=== PATIENT | male | born 1955 | race Caucasian/White ===

== ENCOUNTER 2018-03-05 16:05 | Emergency (ER) | payer OTHER ==
--- OUTSIDE RECORDS SUMMARY | 2018-03-05 16:26 | XMS REPORT | Continuity of Care Document ---
:1955 External Reference #:[id number] Author Name Rocael Linares MD Address [address], [address] [place] [address] Care Team Providers Name Role Phone Rocael Linares M.D. Primary Care Physician Unavailable Payers Type Date Identification Numbers Payment Provider Subscriber Effective: Policy Number: [employer] Alden Dockery 2013 [id number] [facility] PayID: [id number] [facility] [id number] [place] [id number] Advance Directives Description No Information Available Problems Date Description Provider Status Onset: 02/05/2012 Gastro-esophageal reflux disease with Active esophagitis Onset: 02/05/2012 Benign prostatic hyperplasia Active Onset: 02/05/2012 Hypercholesterolemia Active Onset: 02/05/2012 Hypothyroidism Active Onset: 11/10/2015 Shoulder joint pain Rocael Linares MD Active Onset: 02/11/2018 Adult health examination Rocael Linares MD Active Family History Description No Information Available Social History Type Date Description Comments Sex Unknown ETOH Use Rarely consumes alcohol Tobacco Use Reviewed: Patient has never smoked 11/10/15 Recreational Drug Use Denies Drug Use Smoking Status Reviewed: Patient has never smoked 11/10/15 Exercise Type/Frequency Exercises rarely walking 2-3 times a week Allergies, Adverse Reactions, Alerts Description No Known Drug Allergies Medications Medication Date Status Form Strength Qnty SIG Indications Ordering Provider Shingrix 02/11/ Active Suspension 50mcg/0.5 1unit 0.5 Rocael 2018 Rec ML s milliliters Teresa intramuscular MD jose AT month 0, repeat in 2-6 months Synthroid 10/05/ Active Tablets 25mcg 90tab Take One Rocael 2014 s Tablet By Teresa Mouth Every MD jose Day Immunizations CPT Code Status Date Vaccine Lot # [id number] Given 09/04/2012 Tdap Vital Signs Date Vital Result Comment 02/11/2018 11:03am Height 69 inches 5'9" Weight 222.00 lb BMI (Body Mass Index) 32.8 kg/m2 BP Systolic 140 mmHg BP Diastolic 90 mmHg Heart Rate 79 /min Body Temperature 97.0 F Body Temperature 36.1 C O2 % BldC Oximetry 97 % BP Systolic Recheck 112 mmHg BP Diastolic Recheck 80 mmHg 02/02/2017 10:26am Height 69 inches 5'9" Weight 224.38 lb BMI (Body Mass Index) 33.1 kg/m2 BP Systolic 145 mmHg BP Diastolic 88 mmHg Heart Rate 80 /min Body Temperature 98.2 F Body Temperature 36.8 C 11/10/2015 11:11am Height 69.5 inches 5'9.50" Weight 225.12 lb BMI (Body Mass Index) 32.8 kg/m2 BP Systolic 113 mmHg BP Diastolic 63 mmHg Heart Rate 66 /min Body Temperature 98.4 F Body Temperature 36.9 C 02/22/2015 11:48am Height 68.50 inches Weight 232.00 lb BMI (Body Mass Index) 34.76 kg/m2 BP Systolic 125 mmHg BP Diastolic 78 mmHg Heart Rate 86 /min Body Temperature 98.3 F Body Temperature 36.8 C O2 % BldC Oximetry 97 % 10/05/2014 11:16am Height 68.50 inches Weight 229.00 lb BMI (Body Mass Index) 34.31 kg/m2 BP Systolic 118 mmHg BP Diastolic 70 mmHg Heart Rate 76 /min 09/23/2013 11:14am Height 68.50 inches Weight 231.00 lb BMI (Body Mass Index) 34.61 kg/m2 BP Systolic 112 mmHg BP Diastolic 77 mmHg Heart Rate 73 /min Body Temperature 98.0 F Body Temperature 36.7 C 04/09/2013 1:51pm BMI (Body Mass Index) 34.46 kg/m2 Heart Rate 96 /min 04/09/2013 1:51pm Height 68.50 inches Weight 230.00 lb BMI (Body Mass Index) 34.46 kg/m2 BP Systolic 155 mmHg BP Diastolic 86 mmHg Heart Rate 96 /min 09/04/2012 1:04pm BMI (Body Mass Index) 32.64 kg/m2 09/04/2012 1:04pm Height 69.00 inches Weight 221.00 lb BMI (Body Mass Index) 32.64 kg/m2 BP Systolic 118 mmHg BP Diastolic 70 mmHg 08/04/2011 1:05pm BMI (Body Mass Index) 32.00 kg/m2 Heart Rate 79 /min 08/04/2011 1:05pm Height 69.25 inches Weight 220.00 lb BMI (Body Mass Index) 32.00 kg/m2 BP Systolic 109 mmHg BP Diastolic 70 mmHg Heart Rate 79 /min Body Temperature 97.8 F Body Temperature 36.6 C 07/13/2011 11:49am Weight 222.00 lb BP Systolic 125 mmHg BP Diastolic 71 mmHg Heart Rate 71 /min Body Temperature 97.5 F Body Temperature 36.4 C O2 % BldC Oximetry 97 % 08/02/2010 2:10pm Height 69.00 inches Weight 217.00 lb BMI (Body Mass Index) 32.00 kg/m2 BP Systolic 116 mmHg BP Diastolic 70 mmHg Heart Rate 69 /min 03/08/2010 11:10am Weight 224.00 lb BP Systolic 124 mmHg BP Diastolic 75 mmHg Heart Rate 73 /min Body Temperature 97.0 F Body Temperature 36.1 C 06/17/2009 8:29am Height 69.50 inches Weight 220.00 lb BMI (Body Mass Index) 32.00 kg/m2 BP Systolic 118 mmHg BP Diastolic 73 mmHg Heart Rate 80 /min 04/20/2009 11:32am Weight 220.00 lb BP Systolic 121 mmHg BP Diastolic 69 mmHg Heart Rate 80 /min Body Temperature 97.9 F Body Temperature 36.6 C 06/15/2008 8:31am Weight 217.00 lb BP Systolic 111 mmHg BP Diastolic 67 mmHg Heart Rate 67 /min 11/27/2006 9:50am Weight 219.00 lb BP Systolic 132 mmHg BP Diastolic 76 mmHg Heart Rate 73 /min Results Test Date Facility Test Result H/L Range Note CMP-Male 02/02/2017 [facility] Glucose 96 mg/dL 74-106 1 [address] [place], [place] [id number] [phone] BUN 15 mg/dL 6-20 Creatinine 0.8 mg/dL 0.5-1.3 Sodium 140 mmol/L 136-145 Potassium 4.2 mmol/L 3.5-5.3 Chloride 102 mmol/L 98-107 Co2 29 mEq/L 20-31 Anion Gap 9 mmol/L 7-16 eGFR-male 99 mL/m/1.73m - eGFR-Aa male 120 mL/m/1.73m - 2 Alk. Phos. 72 U/L 46-116 Alt 29 U/L 4-36 3 Ast 24 U/L 8-33 Total Bilirubin 0.8 mg/dL 0.3-1.2 Total Protein 7.1 g/dL 6.4-8.3 4 Albumin 4.6 g/dL 3.4-4.8 A/G Ratio 1.8 Ratio 1.0-2.0 Globulin 2.5 g/dL 2.4-3.7 Calcium 9.6 mg/dL 8.9-10.5 Cbcadp 02/02/2017 [facility] WBC 5.2 x10E3/uL 4.2-12.0 [address] [place] [address] [phone] RBC 5.36 x10E6/uL 4.4-6.0 HGB 15.3 g/dL 13.8-18.0 HCT 45.4 % 39-52 MCV 84.7 fL 80-98 MCH 28.5 pg 27-33 MCHC 33.7 g/dL 32-36 RDW 12.9 % 11.2-15.2 PLT 271 x10E3/uL 135-420 MPV 7.5 fL 7.0-12.3 % Piero 64.5 % 41.0-80.0 %Lym 26.6 % 10.0-45.2 %Summit 5.9 % 2.0-13.0 %Eos 2.0 % 0.0-8.0 %Baso 1.0 % 0.0-3.0 Neut 3.3 x10E3/uL 2.0-8.1 Lymp 1.4 x10E3/uL 0.6-3.1 Summit 0.3 x10E3/uL 0.0-1.0 Eos 0.1 x10E3/uL 0.0-0.6 Baso 0.1 x10E3/uL 0.0-0.2 LPP 02/02/2017 [facility] Cholesterol 248 mg/dL High 0-200 [address] [place] [address] [phone] Triglycerides 268 mg/dL High 0-249 5 HDL 45 mg/dL 40-60 LDL-Calculated 149 mg/dL High 0-130 VLDL 54 mg/dL High 0-28 Cardiac Risk 5.51 Ratio High 3.7-5.3 Laboratory test finding 02/02/2017 [facility] PSA 1.9 ng/ml 0-4.0 6 [address] [place] [address] [phone] TSH3 2.695 mIU/ml 0.350-5.500 7 Free T4 0.94 ng/dL 0.89-1.80 8 Venipuncture DONE - 9 Cbcadp 11/10/2015 [facility] WBC 6.7 x10E3/uL 4.2-12.0 [address] [place] [address] [phone] RBC 5.24 x10E6/uL 4.4-6.0 HGB 14.8 g/dL 13.8-18.0 HCT 44.3 % 39-52 MCV 84.6 fL 80-98 MCH 28.2 pg 27-33 MCHC 33.3 g/dL 32-36 RDW 12.9 % 11.2-15.2 PLT 254 x10E3/uL 135-420 MPV 7.2 fL 7.0-12.3 % Piero 67.7 % 41.0-80.0 %Lym 25.8 % 10.0-45.2 %Summit 4.6 % 2.0-13.0 %Eos 1.0 % 0.0-8.0 %Baso 0.9 % 0.0-3.0 Neut 4.5 x10E3/uL 2.0-8.1 Lymp 1.7 x10E3/uL 0.6-3.1 Summit 0.3 x10E3/uL 0.0-1.0 Eos 0.1 x10E3/uL 0.0-0.6 Baso 0.1 x10E3/uL 0.0-0.2 CMP-Male 11/10/2015 [facility] Glucose 94 mg/dL 74-106 10 [address] [place] [address] [phone] BUN 15 mg/dL 6-20 Creatinine 0.8 mg/dL 0.5-1.3 Sodium 141 mmol/L 136-145 Potassium 4.0 mmol/L 3.5-5.3 Chloride 101 mmol/L 98-107 Co2 32 mEq/L High 20-31 Anion Gap 8 mmol/L 7-16 eGFR-male 99 mL/m/1.73m - eGFR-Aa male 120 mL/m/1.73m - 11 Alk. Phos. 65 U/L 46-116 Alt 31 U/L 4-36 Ast 26 U/L 8-33 Total Bilirubin 0.9 mg/dL 0.3-1.2 Total Protein 7.2 g/dL 6.4-8.3 12 Albumin 4.5 g/dL 3.4-4.8 A/G Ratio 1.7 Ratio 1.0-2.0 Globulin 2.7 g/dL 2.4-3.7 Calcium 9.3 mg/dL 8.9-10.5 LPPM 11/10/2015 [facility] Cholesterol 232 mg/ dL High 0-200 [address] [place], [place] [address] [phone] Triglycerides 201 mg/dL 0-249 13 HDL 42 mg/dL 40-60 LDL-Calculated 150 mg/dL High 0-130 VLDL 40 mg/dL High 0-28 Cardiac Risk 5.52 Ratio High 3.7-5.3 Laboratory test finding 11/10/2015 [facility] PSA 1.9 ng/ml 0-4.0 14 [address] [place], [place] [address] [phone] Free T4 0.95 ng/dL 0.89-1.80 15 TSH3 3.356 mIU/ml 0.350-5.500 16 Venipuncture DONE - 17 Babesia Microti 02/24/2015 [facility] Babesia Microti (Igm) <1:20 18 (Igm) [address], [place] [address] [phone] Babesia Microti AB 02/24/2015 [facility] Babesia microti <1:64 Igg, Igm [address] [facility]odies (IgG, [place] [address] IgM), Ifa [phone] Ehrlichiosis Panel 02/24/2015 [facility] A. Phagocytophilum <1:[address] (Igg) [place] [address] [phone] A. Phagocytophilum (Igm) <1:20 19 E. Chaffeensis AB (Igg) <1:64 20 E. Chaffeensis AB (Igm) <1:20 21 Interpretation see note 22 Interpretation see note 23 Interpretation 02/24/2015 [facility] Interpretation see note [address] [place] [address] [phone] Lyme Disease Screen 02/24/2015 [facility] Lyme Disease <0.[address] Screen [place], [place] [address] [phone] Lacny Flu A/B 02/22/2015 [facility] Lacny Flu A /B sent [id number] By PCR [address] [id number] [place] [address] [phone] Babesia Microti AB 02/22/2015 [facility] Babesia Microti AB see below Igg, Igm [address] Igg, [place] [address] [phone] Culture, Throat 02/22/2015 [facility] Culture, Throat See Comment 26 [address] [place] [place] [address] [phone] Influenza A Antigen 02/22/2015 [facility] Influenza A Negative [address] [place] [address] [phone] Influenza A Antigen Negative 28 Influenza B 02/22/2015 [facility] Influenza B Negative [address] [place] [address] [phone] Influenza B Antigen Negative 30 Rapid Strep 02/22/2015 [facility] Rapid Strep Negative 31 [address] [place] [address] [phone] Rapid Strep Negative 32 Venipuncture 02/22/2015 [facility] Venipuncture Done [address] [place] [address] [phone] Cbcadp 10/05/2014 [facility] % Piero 71.1 % [address] [place] [address] [phone] %Baso 1.0 % %Eos 1.1 % %Lym 23.2 % %Summit 3.6 % Baso 0.1 x10E3/uL Eos 0.1 x10E3/uL HCT 42.3 % HGB 14.1 g/dL Lymp 1.3 x10E3/uL MCH 27.7 pg MCHC 33.4 g/dL MCV 82.8 fL MPV 7.8 fL Summit 0.2 x10E3/uL Neut 4.0 x10E3/uL PLT 238 x10E3/uL RBC 5.11 x10E6/uL RDW 13.8 % WBC 5.7 x10E3/uL CMP-Male 10/05/2014 [facility] Anion Gap 8 mmol/ L [address] [place] [address] [phone] BUN 15 mg/dL Calcium 9.5 mg/dL Chloride 104 mmol/L Co2 29 mEq/L Creatinine 0.8 mg/dL Glucose 96 mg/dL 33 Potassium 4.2 mmol/L Sodium 141 mmol/L eGFR-Aa male 121 mL/m/1.73m 34 eGFR-male 100 mL/m/1.73m Free T4 10/05/2014 [facility] Free T4 0.94 ng/ dL [address] [place] [address] [phone] LDH 10/05/2014 [facility] LDH 152 U/L 35 [address] [place] [address] [phone] Venipuncture 10/05/2014 [facility] Venipuncture Done [address] [place] [address] [phone] Uric Acid 10/05/2014 [facility] Uric Acid 6.7 mg /dL [address] [place] [address] [phone] LDL-Direct 10/05/2014 [facility] LDL-Direct 152 mg/dL [address] [place] [address] [phone] RY 10/05/2014 [facility] A/G Ratio 1.6 Ratio [address] [place] [address] [phone] Albumin 4.4 g/dL Alk. Phos. 66 U/L Alt 33 U/L Ast 23 U/L Direct Bilirubin 0.2 mg/dL Globulin 2.7 g/dL Total Bilirubin 0.7 mg/dL Total Protein 7.1 g/dL 36 LPP 10/05/2014 [facility] Cardiac Risk 5.70 Ratio [address] [place] [address] [phone] Cholesterol 211 mg/dL HDL 37 mg/dL Triglycerides 318 mg/dL 37 VLDL 64 mg/dL PSA 10/05/2014 [facility] PSA 1.8 ng/ml 38 [address] [place] [address] [phone] Phosphorus 10/05/2014 [facility] Phosphorus 3.2 mg/dL [address] [place] [address] [phone] Testosterone 10/05/2014 [facility] Testosterone 282.39 ng/dL [address] [place] [address] [phone] TSH3 10/05/2014 [facility] TSH3 3.792 mIU/ml [address] [place] [address] [phone] Cbcadp 09/23/2013 [facility] % Piero 68.5 % [address] [place] [address] [phone] %Baso 0.8 % %Eos 2.1 % %Lym 23.5 % %Summit 5.0 % Baso 0.1 x10E3/uL Eos 0.1 x10E3/uL HCT 43.8 % HGB 15.0 g/dL Lymp 1.6 x10E3/uL MCH 28.8 pg MCHC 34.3 g/dL MCV 83.8 fL MPV 8.3 fL Summit 0.3 x10E3/uL Neut 4.6 x10E3/uL PLT 238 x10E3/uL RBC 5.23 x10E6/uL RDW 13.3 % WBC 6.7 x10E3/uL CMP-Male 09/23/2013 [facility] A/G Ratio 1.8 Ratio [address] [place] [address] [phone] Albumin 4.4 g/dL Alk. Phos. 61 U/L Alt 36 U/L Anion Gap 9 mmol/L Ast 27 U/L BUN 23 mg/dL Calcium 9.1 mg/dL Chloride 101 mmol/L Co2 32 mEq/L Creatinine 0.8 mg/dL Globulin 2.5 g/dL Glucose 92 mg/dL 39 Potassium 4.3 mmol/L Sodium 142 mmol/L Total Bilirubin 0.8 mg/dL Total Protein 6.9 g/dL 40 eGFR-Aa male 121 mL/m/1.73m 41 eGFR-male 100 mL/m/1.73m Free T4 09/23/2013 [facility] Free T4 0.94 ng/ dL [address] [place] [address] [phone] Venipuncture 09/23/2013 [facility] Venipuncture Done [address] [place] [address] [phone] Uric Acid 09/23/2013 [facility] Uric Acid 6.6 mg /dL [address] [place] [address] [phone] HCV Ab 09/23/2013 [facility] HCV Ab Nonreactive [address] [place] [address] [phone] LDH 09/23/2013 [facility] LDH 157 U/L [address] [place] [address] [phone] LDL-Direct 09/23/2013 [facility] LDL-Direct 144 mg/dL [address] [place] [address] [phone] LPP 09/23/2013 [facility] Cardiac Risk 6.17 Ratio [address] [place] [address] [phone] Cholesterol 222 mg/dL HDL 36 mg/dL Triglycerides 216 mg/dL 42 VLDL 43 mg/dL PSA 09/23/2013 [facility] PSA 1.7 ng/ml 43 [address] [place] [address] [phone] TSH3 09/23/2013 [facility] TSH3 6.455 miu/[place] [address] [phone] Phosphorus 09/23/2013 [facility] Phosphorus 3.2 mg/[place] [address] [phone] UA 04/09/2013 [facility] [place] [address] [phone] Clarity. Clear Color. Yellow 44 Glucose, Urine Negative Ketone. Negative Leukocytes. Negative Nitrite. Negative Protein. Negative Specific Lewellen. 1.006 45 bilirubin. Negative PH. 6.0 Cbcadp 09/04/2012 [facility] % Piero 71.8 % [place] [address] [phone] %Baso 0.7 % %Eos 1.8 % %Lym 20.7 % %Summit 3.6 % Baso 0.1 x10E3/uL Eos 0.1 x10E3/uL HCT 43.8 % HGB 15.3 g/dL Lymp 1.6 x10E3/uL MCH 29.2 pg MCHC 34.8 g/dL MCV 83.7 fL MPV 7.0 fL Summit 0.3 x10E3/uL Neut 5.4 x10E3/uL PLT 248 x10E3/uL RBC 5.23 x10E6/uL RDW 12.4 % WBC 7.5 x10E3/uL CMP-Male 09/04/2012 [facility] A/G Ratio 1.8 [place] [address] [phone] Albumin 4.6 g/dL Alk. Phos. 61 U/L Alt 33 U/L Anion Gap 7 mmol/L Ast 27 U/L BUN 18 mg/dL Calcium 9.7 mg/dL Chloride 103 mmol/L Co2 30 mEq/L Creatinine 0.8 mg/dL Globulin 2.6 g/dL Glucose 93 mg/dL 46 Potassium 4.2 mmol/L Sodium 140 mmol/L Total Bilirubin 0.9 mg/dL Total Protein 7.2 g/dL 47 eGFR-Aa male 121 mL/m/1.73m 48 eGFR-male 100 mL/m/1.73m Venipuncture 09/04/2012 [facility] Venipuncture Done [address] [address] [phone] Free T4 09/04/2012 [facility] Free T4 0.84 ng/ dL [address] [place] [address] [phone] LDH 09/04/2012 [facility] LDH 152 U/L [address] [place] [address] [phone] LDL-Direct 09/04/2012 [facility] LDL-Direct 164 mg/dL [address] [place] [address] [phone] LPP 09/04/2012 [facility] Cardiac Risk 5.59 Ratio [address] [place] [address] [phone] Cholesterol 246 mg/dL HDL 44 mg/dL Triglycerides 236 mg/dL 49 VLDL 47 mg/dL PSA 09/04/2012 [facility] PSA 1.7 ng/ml 50 [address] [place] [address] [phone] TSH3 09/04/2012 [facility] TSH3 3.978 miu/ml [address] [place], [place] [address] [phone] Advia Cbcadp 08/04/2011 [facility] % Piero 67.4 % [address] [place] [address] [phone] %Baso 0.9 % %Eos 1.7 % %Lym 24.7 % %Summit 3.4 % Baso 0.1 x10E3/uL Eos 0.1 x10E3/uL HCT 44.0 % HGB 15.1 g/dL Lymp 1.7 x10E3/uL MCH 28.4 pg MCHC 34.2 g/dL MCV 83.1 fL MPV 7.0 fL Summit 0.2 x10E3/uL Neut 4.6 x10E3/uL PLT 255 x10E3/uL RBC 5.30 x10E6/uL RDW 12.6 % WBC 6.9 x10E3/uL CMP-Male 08/04/2011 [facility] A/G Ratio 1.6 Ratio [address] [address] [phone] Albumin 4.5 g/dL Alk. Phos. 67 U/L Alt 26 U/L Anion Gap 10 mmol/L Ast 21 U/L BUN 21 mg/dL Calcium 9.6 mg/dL Chloride 104 mmol/L Co2 28 mEq/L Creatinine 1.0 mg/dL Globulin 2.9 g/dL Glucose 91 mg/dL 51 Potassium 4.3 mmol/L Sodium 142 mmol/L Total Bilirubin 0.9 mg/dL Total Protein 7.4 g/dL 52 eGFR-Aa male 94 mL/m/1.73m 53 eGFR-male 78 mL/m/1.73m Free T4 08/04/2011 [facility] Free T4 1.09 ng/ dL [address] [place] [address] [phone] LDH 08/04/2011 [facility] LDH 146 U/L [address] [address] [phone] Venipuncture 08/04/2011 [facility] Venipuncture Done [address] [address] [phone] LDL-Direct 08/04/2011 [facility] LDL-Direct 155 mg/dL [address] [place] [address] [phone] LPP 08/04/2011 [facility] Cardiac Risk 5.78 Ratio [address] [address] [phone] Cholesterol 237 mg/dL HDL 41 mg/dL Triglycerides 203 mg/dL 54 VLDL 41 mg/dL PSA 08/04/2011 [facility] PSA 2.1 ng/ml 55 [address] [place] [address] [phone] Phosphorus 08/04/2011 [facility] Phosphorus 3.6 mg/dL [address] [place] [address] [phone] TSH3 08/04/2011 [facility] TSH3 3.458 miu/ml [address] [place] [address] [phone] Uric Acid 08/04/2011 [facility] Uric Acid 5.9 mg /dL [address] [place], [place] [address] [phone] Advia Cbcadp 08/02/2010 [facility] % Piero 74.7 % [address] [place] [address] [phone] %Baso 0.6 % %Eos 1.5 % %Lym 19.5 % %Summit 2.7 % Baso 0.0 x10E3/uL Eos 0.1 x10E3/uL HCT 42.9 % HGB 15.0 g/dL Lymp 1.5 x10E3/uL MCH 29.0 pg MCHC 34.9 g/dL MCV 83.2 fL MPV 7.2 fL Summit 0.2 x10E3/uL Neut 5.6 x10E3/uL PLT 267 x10E3/uL RBC 5.16 x10E6/uL RDW 12.4 % WBC 7.5 x10E3/uL CMP-Male 08/02/2010 [facility] A/G Ratio 1.6 Ratio [address] [place] [address] [phone] Albumin 4.5 g/dL Alk. Phos. 68 U/L Alt 25 U/L Anion Gap 9 mmol/L Ast 24 U/L BUN 17 mg/dL Calcium 9.6 mg/dL Chloride 102 mmol/L Co2 31 mEq/L Creatinine 0.9 mg/dL Globulin 2.9 g/dL Glucose 91 mg/dL 56 Potassium 4.1 mmol/L Sodium 142 mmol/L Total Bilirubin 1.0 mg/dL Total Protein 7.4 g/dL 57 eGFR-male 88 mL/m/1.73m eGRF-Aa male 107 mL/m/1.73m 58 Free T4 08/02/2010 [facility] Free T4 1.02 ng/ dL [address] [place] [address] [phone] LDH 08/02/2010 [facility] LDH 163 U/L [address] [place] [address] [phone] LDL-Direct 08/02/2010 [facility] LDL-Direct 193 mg/dL [address] [place] [address] [phone] LPP 08/02/2010 [facility] Cardiac Risk 5.64 Ratio [address] [place], [place] [address] [phone] Cholesterol 237 mg/dL HDL 42 mg/dL Triglycerides 172 mg/dL 59 VLDL 34 mg/dL PSA 08/02/2010 [facility] PSA 1.7 ng/ml 60 [address] [place] [address] [phone] TSH3 08/02/2010 [facility] TSH3 3.809 miu/ml [address] [place] [address] [phone] Venipuncture 08/02/2010 [facility] Venipuncture Done [address] [place], [place] [address] [phone] UA 03/08/2010 [facility] Blood. Negative [address] [place] [address] [phone] Clarity. Clear Color. Yellow 61 Glucose, Urine Negative Ketone. Negative Leukocytes. Negative Nitrite. Negative Protein. Negative Specific [place]. 1.007 bilirubin. Negative PH. 7.0 TSH3 03/08/2010 [facility] TSH3 3.047 miu/ml [address] [place], [place] [id number] [phone] LDL-Direct 03/08/2010 [facility] LDL-Direct 176 mg/dL [address] [place] [address] [phone] LDH 03/08/2010 [facility] LDH 151 U/L [address] [place], [place] [id number] [phone] PSA 03/08/2010 [facility] PSA 2.2 ng/ml [address] [place] [address] [phone] LPP 03/08/2010 [facility] Cardiac Risk 5.59 Ratio [address] [place] [address] [phone] Cholesterol 218 mg/dL HDL 39 mg/dL Triglycerides 118 mg/dL 63 VLDL 24 mg/dL CMP-Male 03/08/2010 [facility] A/G Ratio 1.6 Ratio [address] [place] [address] [phone] Albumin 4.5 g/dL Alk. Phos. 76 U/L Alt 34 U/L Anion Gap 11 mmol/L Ast 25 U/L BUN 15 mg/dL Calcium 9.4 mg/dL Chloride 103 mmol/L Co2 27 mEq/L Creatinine 1.0 mg/dL Globulin 2.8 g/dL Glucose 96 mg/dL 64 Potassium 4.3 mmol/L Sodium 141 mmol/L Total Bilirubin 0.8 mg/dL Total Protein 7.3 g/dL 65 eGFR-male 78 mL/m/1.73m eGRF-Aa male 95 mL/m/1.73m 66 Advia Cbcadp 03/08/2010 [facility] % Piero 74.2 % [place] [address] [phone] %Baso 1.0 % %Eos 1.3 % %Lym 16.5 % %Summit 5.3 % Baso 0.1 x10E3/uL Eos 0.1 x10E3/uL HCT 46.4 % HGB 15.6 g/dL Lymp 1.2 x10E3/uL MCH 28.3 pg MCHC 33.5 g/dL MCV 84.3 fL MPV 7.2 fL Summit 0.4 x10E3/uL Neut 5.6 x10E3/uL PLT 252 x10E3/uL RBC 5.51 x10E6/uL RDW 12.2 % WBC 7.5 x10E3/uL Free T4 03/08/2010 [facility] Free T4 0.90 ng/ dL [address] [place] [address] [phone] TSH3 06/17/2009 [facility] TSH3 0.064 miu/ml [address] [place] [address] [phone] LDH 06/17/2009 [facility] LDH 135 U/L [address] [place] [address] [phone] CMP-Male 06/17/2009 [facility] A/G Ratio 1.4 Ratio [address] [place] [address] [phone] Albumin 4.1 g/dL Alk. Phos. 71 U/L Alt 45 U/L Anion Gap 6 mmol/L Ast 29 U/L BUN 20 mg/dL Calcium 9.5 mg/dL Chloride 104 mmol/L Co2 32 mEq/L Creatinine 0.9 mg/dL Globulin 3 g/dL Glucose 98 mg/dL 67 Potassium 4.3 mmol/L Sodium 142 mmol/L Total Bilirubin 0.7 mg/dL Total Protein 7.1 g/dL 68 eGFR-male 89 mL/m/1.73m eGRF-Aa male 107 mL/m/1.73m 69 Phosphorus 06/17/2009 [facility] Phosphorus 3.5 mg/dL [address] [place] [address] [phone] Free T4 06/17/2009 [facility] Free T4 0.92 ng/ dL [address] [place] [address] [phone] Uric Acid 06/17/2009 [facility] Uric Acid 6.8 mg /dL [address] [place] [address] [phone] PSA 06/17/2009 [facility] PSA 1.5 ng/ml 70 [address] [place] [address] [phone] LDL-Direct 06/17/2009 [facility] LDL-Direct 152 mg/dL [address] [place] [address] [phone] LPP 06/17/2009 [facility] Cardiac Risk 5.88 Ratio [address] [place] [id number] [phone] Cholesterol 253 mg/dL HDL 43 mg/dL Triglycerides 365 mg/dL 71 VLDL 73 mg/dL Advia Cbcadp 06/17/2009 [facility] % Piero 60.1 % [address] [address] [phone] %Baso 0.8 % %Eos 2.9 % %Lym 29.7 % %Summit 4.8 % Baso 0.1 x10E3/uL Eos 0.2 x10E3/uL HCT 43.8 % HGB 15.3 g/dL Lymp 1.6 x10E3/uL MCH 28.2 pg MCHC 34.9 g/dL MCV 80.8 fL MPV 7.4 fL Summit 0.3 x10E3/uL Neut 3.3 x10E3/uL PLT 240 x10E3/uL RBC 5.42 x10E6/uL RDW 13.1 % WBC 5.5 x10E3/uL TSH3 04/20/2009 [facility] TSH3 0.046 miu/ml [address] [address] [phone] Free T4 04/20/2009 [facility] Free T4 1.24 ng/ dL [address] [place] [address] [phone] LDL-Direct 04/20/2009 [facility] LDL-Direct 143 mg/dL [address] [address] [phone] LPP 04/20/2009 [facility] Cardiac Risk 5.10 Ratio [address] [place] [address] [phone] Cholesterol 214 mg/dL HDL 42 mg/dL Triglycerides 151 mg/dL 72 VLDL 30 mg/dL Free T4 11/16/2008 [facility] Free T4 0.97 ng/ dL [address] [address] [phone] TSH3 11/16/2008 [facility] TSH3 1.663 miu/ml [address] [place] [address] [phone] FrT4-D+S 08/28/2008 [facility] Free T4 0.78 ng/ dL [address] [place] [address] [phone] LDL-Direct 08/28/2008 [facility] LDL-Direct 143 mg/dL [address] [place] [address] [phone] LPP 08/28/2008 [facility] Cardiac Risk 6.38 Ratio [address] [place] [address] [phone] Cholesterol 255 mg/dL HDL 40 mg/dL Triglycerides 394 mg/dL 73 VLDL 79 mg/dL TSH 08/28/2008 [facility] TSH 6.910 miu/ml [address] [place] [address] [phone] T3 06/15/2008 [facility] T3 151.64 ng/dL [address] [place] [address] [phone] T4 06/15/2008 [facility] T4 6.4 g/dL [address], [place] [address] [phone] TSH 06/15/2008 [facility] TSH 6.556 miu/ml [address] [place] [address] [phone] Uric Acid 06/15/2008 [facility] Uric Acid 6.1 mg /dL [address] [place] [address] [phone] Advia Cbcadp 06/15/2008 [facility] % Piero 66.4 % [address] [place] [address] [phone] %Baso 1.0 % %Eos 1.7 % %Lym 24.2 % %Summit 5.2 % Baso 0.1 3/uL Eos 0.1 3/uL HCT 41.6 % HGB 14.4 g/dL Lymp 1.3 3/uL MCH 28.4 pg MCHC 34.7 g/dL MCV 81.8 fL MPV 8.9 fL Summit 0.3 3/uL Neut 3.6 3/uL PLT 250 3/uL RBC 5.08 6/uL RDW 12.5 % WBC 5.4 3/uL CMP-Male 06/15/2008 [facility] A/G Ratio 1.8 Ratio [address] [address] [phone] Albumin 4.6 g/dL Alk. Phos. 58 U/L Alt 24 U/L Anion Gap 5 mmol/L Ast 24 U/L BUN 21 mg/dL Calcium 9.5 mg/dL Chloride 103 mmol/L Co2 32 mEq/L Creatinine 1.0 mg/dL Globulin 2.6 g/dL Glucose 102 mg/dL 74 Patient Age 53 Potassium 4.2 mmol/L Sodium 140 mmol/L Total Bilirubin 0.7 mg/dL Total Protein 7.2 g/dL 75 eGFR-male 79 mL/m/1.73m eGRF-Aa male 95 mL/m/1.73m 76 Free T4 06/15/2008 [facility] Free T4 1.04 ng/ dL [address] [place] [address] [phone] HBsAB 06/15/2008 [facility] HBsAB <0.10 [address] [place] [address] [phone] LDH 06/15/2008 [facility] LDH 141 U/L [address] [address] [phone] LDL-Direct 06/15/2008 [facility] LDL-Direct 161 mg/dL [address] [place] [address] [phone] LPP 06/15/2008 [facility] Cardiac Risk 5.60 Ratio [address] [place] [address] [phone] Cholesterol 235 mg/dL HDL 42 mg/dL Triglycerides 151 mg/dL 77 VLDL 30 mg/dL PSA 06/15/2008 [facility] PSA 1.4 ng/ml 78 [address] [place] [address] [phone] Phosphorus 06/15/2008 [facility] Phosphorus 3.4 mg/dL [address] [place] [address] [phone] Advia Cbcadp 11/27/2006 [facility] % Piero 74.8 % [address] [place] [address] [phone] %Baso 0.8 % %Eos 1.6 % %Lym 18.0 % %Summit 3.5 % Baso 0.1 3/uL Eos 0.1 3/uL HCT 42.5 % HGB 15.2 g/dL 79 Lymp 1.0 3/uL MCH 29.4 pg MCHC 35.7 g/dL MCV 82.3 fL MPV 6.3 fL Summit 0.2 3/uL Neut 4.3 3/uL PLT 292 3/uL RBC 5.16 6/uL RDW 13.1 % WBC 5.8 3/uL CMP-Male 11/27/2006 [facility] A/G Ratio 1.7 Ratio [address] [place] [phone] Albumin 4.6 g/dL Alk. Phos. 55 U/L Alt 27 U/L Anion Gap 8 mmol/L Ast 24 U/L BUN 18 mg/dL Calcium 9.7 mg/dL Chloride 106 mmol/L Co2 28 mEq/L Creatinine 0.9 mg/dL Globulin 2.7 g/dL Glucose 108 mg/dL 80 Patient Age 51 Potassium 4.2 mmol/L Sodium 142 mmol/L Total Bilirubin 0.9 mg/dL Total Protein 7.3 g/dL eGFR-male 95 mL/m/1.73m eGRF-Aa male 115 mL/m/1.73m 81 Free T4 11/27/2006 [facility] Free T4 0.97 ng/ dL [address] [place] [address] [phone] LDH 11/27/2006 [facility] LDH 144 U/L [address] [place] [id number] [phone] LDL-Direct 11/27/2006 [facility] LDL-Direct 205 mg/dL [address] [place] [address] [phone] LPP 11/27/2006 [facility] Cardiac Risk 6.07 Ratio [address] [place] [address] [phone] Cholesterol 255 mg/dL HDL 42 mg/dL Triglycerides 152 mg/dL VLDL 30 mg/dL PSA 11/27/2006 [facility] PSA 1.2 ng/ml 82 [address] [place], [place] [address] [phone] Phosphorus 11/27/2006 [facility] Phosphorus 3.1 mg/dL [address] [place] [address] [phone] TSH 11/27/2006 [facility] TSH 3.215 miu/ml [address] [place] [address] [phone] Uric Acid 11/27/2006 [facility] Uric Acid 6.3 mg /dL [address] [place] [address] [phone] 1 [place] Diabetes Association (ADA) Recommended Range is 65-99 mg/dL 2 Normal Kidney Function or Mild Disease GFR >59 mL/min/1.73m2 Chronic Kidney Disease GFR 15-59 mL/min/1.73m2 Renal Failure GFR <15 mL/min/1.73m2 3 Effective 08/05/2016: [employer] has indicated interference with the drugs sulfasalazine and sulfapyridine. They suggest collection should occur prior to drug administration due to falsely depressed results. 4 Results may reflect a potential interference in Total Protein results in patients receiving dextran as blood volume expanders. 5 National Cholesterol Education Program (NCEP) Guidelines: Recommended Range <150 mg/dL 6 * Serum levels of PSA should not be interpreted as absolute * evidence of the presence or absence of disease. * The PSA value should be used in conjunction with information * obtained from clinical diagnostic procedure. Test performed * on the [facility] using Chemiluminescence Method. * Values obtained with different assay methods or kits cannot * be used interchangeably. * 7 FASTING 8 FASTING 9 FASTING 10 [place] Diabetes Association (ADA) Recommended Range is 65-99 mg/dL 11 Normal Kidney Function or Mild Disease GFR >59 mL/min/1.73m2 Chronic Kidney Disease GFR 15-59 mL/min/1.73m2 Renal Failure GFR <15 mL/min/1.73m2 12 Results may reflect a potential interference in Total Protein results in patients receiving dextran as blood volume expanders. 13 National Cholesterol Education Program (NCEP) Guidelines: Recommended Range <150 mg/dL 14 * Serum levels of PSA should not be interpreted as absolute * evidence of the presence or absence of disease. * The PSA value should be used in conjunction with information * obtained from clinical diagnostic procedure. Test performed * on the [employer] [facility] using Chemiluminescence Method. * Values obtained with different assay methods or kits cannot * be used interchangeably. * 15 fasting 16 fasting 17 fasting 18 Elevated antibody levels to B. microti indicate exposure to the organism. Human babesiosis infection is transmitted by the bite of an infected Ixodes tick or less frequently from transfusion with blood from an infected donor. Definitive diagnosis is made by identifying intraerythrocytic organisms in peripheral blood. In patients with low parasitemia, antibody detection by IFA is recommended. IgG levels greater than or equal to 1:1024 can be detected in acute phase patients with parasites in blood smears. The IFA assay can be used as a seroepidemiologic tool to study the frequency and distribution of B. microti in endemic areas especially in persons with mixed infections also involving Borrelia burgdorferi. This test was developed and its analytical performance characteristics have been determined by [facility]. It has not been cleared or approved by the U.S. Food and Drug Administration. The FDA has determined that such clearance or approval is not necessary. This assay has been validated pursuant to CLIA regulations and is used for clinical purposes. 19 Anaplasma phagocytophilum is the tick-borne agent causing Human Granulocytic Ehrlichiosis (HGE). HGE is distinct and separate from Human Monocytic Ehrlichiosis (HME), caused by Ehrlichia chaffeensis. Serologic crossreactivity between A. phagocyto- philum and E. Chaffeensis is minimal (5-15%). This test was developed and its analytical performance characteristics have been determined by [facility] [place]. It has not been cleared or approved by the U.S. Food and Drug Administration. The FDA has determined that such clearance or approval is not necessary. This assay has been validated pursuant to CLIA regulations and is used for clinical purposes. 20 Ehrlichia chaffeenis has been identified as the causative agent of Human Monocytic Ehrlichiosis (HME). Infected individuals produce specific antibodies to E. chaffeensis that can be detected by an immuno- fluorescent antibody (IFA) test. Single IgG IFA titers of 1:64 or greater indicate exposure to E. chaffeensis. A four-fold rise in IgG titers between acute and convalescent samples and/or the presence of IgM antibody against E. chaffeensis suggest recent or current infection. This test was developed and its analytical performance characteristics have been determined by [employer] [place]. It has not been cleared or approved by the U.S. Food and Drug Administration. The FDA has determined that such clearance or approval is not necessary. This assay has been validated pursuant to CLIA regulations and is used for clinical purposes. 21 Ehrlichia chaffeenis has been identified as the causative agent of Human Monocytic Ehrlichiosis (HME). Infected individuals produce specific antibodies to E. chaffeensis that can be detected by an immuno- fluorescent antibody (IFA) test. Single IgG IFA titers of 1:64 or greater indicate exposure to E. chaffeensis. A four-fold rise in IgG titers between acute and convalescent samples and/or the presence of IgM antibody against E. chaffeensis suggest recent or current infection. This test was developed and its analytical performance characteristics have been determined by [facility] [place] It has not been cleared or approved by the U.S. Food and Drug Administration. The FDA has determined that such clearance or approval is not necessary. This assay has been validated pursuant to CLIA regulations and is used for clinical purposes. 22 Antibody Not Detected 23 Antibody Not Detected 24 Antibody Not Detected 25 Normal Range: LESS THAN 0.91 Index Value Results Interpretation ------- < OR=0.90 Negative No Lyme antibodies detected 0.91 - 1.09 Equivocal Presence or absence of Lyme antibodies cannot be discerned > OR=1.10 Positive Lyme antibodies detected The use of purified VisE-1 and PepC10 antigens in this assay provides improved specificity compared to assays that utilize whole cell lysates of B. burgdorferi, the causative agent of Lyme disease, and slightly better sensitivity compared to the C6 antibody assay. As recommended by the Food and Drug Administration (FDA), all samples with positive or equivocal results on the Borrelia burgdorferi antibody screen will be tested by Western Blot/Immunoblot. Positive or equivocal screening test results should not be interpreted as truly positive until verified as such using a supplemental assay (e.g., B. burgdorferi blot). The screening test and/or blot for B. burgdorferi antibodies may be falsely negative in early stages of Lyme disease, including the period when erythema migrans is apparent. 26 Report Type: Final Sample Information Test: Culture, Throat Specimen Type: Source: Throat swab Request Date/Time: 02/22/15 12:44 Collect Date/Time: 02/22/15 12:27 Receive Date/Time: 02/22/15 12:44 Status: Completed 02/24/2015 @ 11:09 Comment: CULTURE REPORT Plated Date/Time: / / : Elapsed Time Culture Report 48 Hours Culture negative for Group A Streptococci 27 [facility] and transmitted 02.22.15 [facility] [place] Disclaimer for Negative Tests: The sensitivity of the [employer] Veritor system for Rapid Detection of Flu A Ag is 81.3% as compared to PCR. Therefore, a negative result does not exclude Influenza virus infection. Negative Rapid Flu tests are reflexed to [facility] for PCR testing and verification. 28 [facility] and transmitted 02.22.15 [facility] [place] Disclaimer for Negative Tests: The sensitivity of the [employer] Veritor system for Rapid Detection of Flu A Ag is 81.3% as compared to PCR. Therefore, a negative result does not exclude Influenza virus infection. Negative Rapid Flu tests are reflexed to [facility] for PCR testing and verification. 29 Disclaimer for Negative Tests: The sensitivity of the [employer]itor system for Rapid Detection of Flu B Ag is 85.6% as compared to PCR. Therefore, a negative result does not exclude Influenza virus infection. Negative Rapid Flu tests are reflexed to [facility] for PCR testing and verification. 30 Disclaimer for Negative Tests: The sensitivity of the [employer] Web[employer]itor system for Rapid Detection of Flu B Ag is 85.6% as compared to PCR. Therefore, a negative result does not exclude Influenza virus infection. Negative Rapid Flu tests are reflexed to [facility] for PCR testing and verification. 31 [facility] and transmitted 02.22.15 [facility] [place] Negative screens should have a new specimen submitted for Group A Strep culture if clinically indicated. 32 [employer] and transmitted 02.22.15 [facility] [place] Negative screens should have a new specimen submitted for Group A Strep culture if clinically indicated. 33 [place] Diabetes Association (ADA) Recommended Range is 65-99 mg/dL 34 Normal Kidney Function or Mild Disease GFR >59 mL/min/1.73m2 Chronic Kidney Disease GFR 15-59 mL/min/1.73m2 Renal Failure GFR <15 mL/min/1.73m2 35 Effective 04/02/2014 the LDH range has been changed from 100-190 to 120-246. 36 Results may reflect a potential interference in Total Protein results in patients receiving dextran as blood volume expanders. 37 National Cholesterol Education Program (NCEP) Guidelines: Recommended Range <150 mg/dL 38 * Serum levels of PSA should not be interpreted as absolute * evidence of the presence or absence of disease. * The PSA value should be used in conjunction with information * obtained from clinical diagnostic procedure. Test performed * on the [employer] [facility] using Chemiluminescence Method. * Values obtained with different assay methods or kits cannot * be used interchangeably. * 39 [place] Diabetes Association (ADA) Recommended Range is 65-99 mg/dL 40 Results may reflect a potential interference in Total Protein results in patients receiving dextran as blood volume expanders. 41 Normal Kidney Function or Mild Disease GFR >59 mL/min/1.73m2 Chronic Kidney Disease GFR 15-59 mL/min/1.73m2 Renal Failure GFR <15 mL/min/1.73m2 As of 04/06/2008 the equation used to calculate eGFR has been changed to reflect a reagent reformulation. The reference range has not been affected. 42 National Cholesterol Education Program (NCEP) Guidelines: Recommended Range <150 mg/dL 43 * Serum levels of PSA should not be interpreted as absolute * evidence of the presence or absence of disease. * The PSA value should be used in conjunction with information * obtained from clinical diagnostic procedure. Test performed * on the [employer] [facility] using Chemiluminescence Method. * Values obtained with different assay methods or kits cannot * be used interchangeably. * 44 Urine Microscopic Not Indicated Due To Negative Urine Biochemistries 45 Confirmed by refractometer 46 [place] Diabetes Association (ADA) Recommended Range is 65-99 mg/dL 47 Results may reflect a potential interference in Total Protein results in patients receiving dextran as blood volume expanders. 48 Normal Kidney Function or Mild Disease GFR >59 mL/min/1.73m2 Chronic Kidney Disease GFR 15-59 mL/min/1.73m2 Renal Failure GFR <15 mL/min/1.73m2 As of 04/06/2008 the equation used to calculate eGFR has been changed to reflect a reagent reformulation. The reference range has not been affected. 49 National Cholesterol Education Program (NCEP) Guidelines: Recommended Range <150 mg/dL 50 * Serum levels of PSA should not be interpreted as absolute * evidence of the presence or absence of disease. * The PSA value should be used in conjunction with information * obtained from clinical diagnostic procedure. Test performed * on the [employer] using Chemiluminescence Method. * Values obtained with different assay methods or kits cannot * be used interchangeably. * 51 [place] Diabetes Association (ADA) Recommended Range is 65-99 mg/dL 52 Results may reflect a potential interference in Total Protein results in patients receiving dextran as blood volume expanders. 53 Normal Kidney Function or Mild Disease GFR >59 mL/min/1.73m2 Chronic Kidney Disease GFR 15-59 mL/min/1.73m2 Renal Failure GFR <15 mL/min/1.73m2 As of 04/06/2008 the equation used to calculate eGFR has been changed to reflect a reagent reformulation. The reference range has not been affected. 54 National Cholesterol Education Program (NCEP) Guidelines: Recommended Range <150 mg/dL 55 * Serum levels of PSA should not be interpreted as absolute * evidence of the presence or absence of disease. * The PSA value should be used in conjunction with information * obtained from clinical diagnostic procedure. Test performed * on the [employer] using Chemiluminescence Method. * Values obtained with different assay methods or kits cannot * be used interchangeably. * 56 [place] Diabetes Association (ADA) Recommended Range is 65-99 mg/dL 57 Results may reflect a potential interference in Total Protein results in patients receiving dextran as blood volume expanders. 58 Normal Kidney Function or Mild Disease GFR >59 mL/min/1.73m2 Chronic Kidney Disease GFR 15-59 mL/min/1.73m2 Renal Failure GFR <15 mL/min/1.73m2 As of 04/06/2008 the equation used to calculate eGFR has been changed to reflect a reagent reformulation. The reference range has not been affected. 59 National Cholesterol Education Program (NCEP) Guidelines: Recommended Range <150 mg/dL 60 * Serum levels of PSA should not be interpreted as absolute * evidence of the presence or absence of disease. * The PSA value should be used in conjunction with information * obtained from clinical diagnostic procedure. Test performed * on the [employer] using Chemiluminescence Method. * Values obtained with different assay methods or kits cannot * be used interchangeably. * 61 Urine Microscopic Not Indicated Due To Negative Urine Biochemistries 62 * Serum levels of PSA should not be interpreted as absolute * evidence of the presence or absence of disease. * The PSA value should be used in conjunction with information * obtained from clinical diagnostic procedure. Test performed * on the [employer] using Chemiluminescence Method. * Values obtained with different assay methods or kits cannot * be used interchangeably. * 63 National Cholesterol Education Program (NCEP) Guidelines: Recommended Range <150 mg/dL 64 [place] Diabetes [employer] (ADA) Recommended Range is 65-99 mg/dL 65 Results may reflect a potential interference in Total Protein results in patients receiving dextran as blood volume expanders. 66 Normal Kidney Function or Mild Disease GFR >59 mL/min/1.73m2 Chronic Kidney Disease GFR 15-59 mL/min/1.73m2 Renal Failure GFR <15 mL/min/1.73m2 As of 04/06/2008 the equation used to calculate eGFR has been changed to reflect a reagent reformulation. The reference range has not been affected. 67 [place] Diabetes Association (ADA) Recommended Range is 65-99 mg/dL 68 Results may reflect a potential interference in Total Protein results in patients receiving dextran as blood volume expanders. 69 Normal Kidney Function or Mild Disease GFR >59 mL/min/1.73m2 Chronic Kidney Disease GFR 15-59 mL/min/1.73m2 Renal Failure GFR <15 mL/min/1.73m2 As of 04/06/2008 the equation used to calculate eGFR has been changed to reflect a reagent reformulation. The reference range has not been affected. 70 * Serum levels of PSA should not be interpreted as absolute * evidence of the presence or absence of disease. * The PSA value should be used in conjunction with information * obtained from clinical diagnostic procedure. Test performed * on the [employer] using Chemiluminescence Method. * Values obtained with different assay methods or kits cannot * be used interchangeably. * 71 National Cholesterol Education Program (NCEP) Guidelines: Recommended Range <150 mg/dL 72 National Cholesterol Education Program (NCEP) Guidelines: Recommended Range <150 mg/dL 73 National Cholesterol Education Program (NCEP) Guidelines: Recommended Range <150 mg/dL 74 [place] Diabetes [employer] (ADA) Recommended Range is 65-99 mg/dL 75 Results may reflect a potential interference in Total Protein results in patients receiving dextran as blood volume expanders. 76 Normal Kidney Function or Mild Disease GFR >59 mL/min/1.73m2 Chronic Kidney Disease GFR 15-59 mL/min/1.73m2 Renal Failure GFR <15 mL/min/1.73m2 As of 04/06/2008 the equation used to calculate eGFR has been changed to reflect a reagent reformulation. The reference range has not been affected. 77 National Cholesterol Education Program (NCEP) Guidelines: Recommended Range <150 mg/dL 78 * Serum levels of PSA should not be interpreted as absolute * evidence of the presence or absence of disease. * The PSA value should be used in conjunction with information * obtained from clinical diagnostic procedure. Test performed * on the [employer] using Chemiluminescence Method. * Values obtained with different assay methods or kits cannot * be used interchangeably. * 79 Scattergram reviewed to confirm results. 80 [place] Diabetes Association (ADA) Recommended Range is 65-99 mg/dL 81 Normal Kidney Function or Mild Disease GFR >59 mL/min/1.73m2 Chronic Kidney Disease GFR 15-59 mL/min/1.73m2 Renal Failure GFR <15 mL/min/1.73m2 82 * Serum levels of PSA should not be interpreted as absolute * evidence of the presence or absence of disease. * The PSA value should be used in conjunction with information * obtained from clinical diagnostic procedure. Test performed * on the [employer]aur using Chemiluminescence Method. * Values obtained with different assay methods or kits cannot * be used interchangeably. * Procedures Date Code Description Status 02/02/2017 42710 Electrocardiogram Complete Completed 11/10/2015 52824 Electrocardiogram Complete Completed 06/17/2009 16097 Electrocardiogram Complete Completed 04/20/2009 90038 Bronchodilation Responsiveness Spirometry Pre/Post Completed Bronchodil Adm 06/15/2008 31273 Electrocardiogram Complete Completed 11/27/2006 94582 Electrocardiogram Complete Completed Encounters Type Date Location Provider Dx Diagnosis Office Visit 02/02/2017 [facility] Primary Care Rocael Z00.00 Encntr for general 10:30a AT Erica Linares MD adult medical exam w/o abnormal findings K21.0 Gastro-esophageal reflux disease with esophagitis E78.00 Pure hypercholesterolemia, unspecified E03.9 Hypothyroidism, unspecified Office Visit 11/10/2015 [facility] Primary Orcael K21.0 Gastro-esophageal 11:00a Care AT MD Vijay reflux disease with [place] esophagitis N40.0 Benign prostatic hyperplasia without lower urinry tract symp E78.00 Pure hypercholesterolemia, unspecified M25.511 Pain in right shoulder Z00.00 Encntr for general adult medical exam w/o abnormal findings E03.9 Hypothyroidism, unspecified Plan of Treatment Future Appointment(s):02/12/2019 11:00 am - Rocael Linares MD at [facility] Primary Care AT Cdyebjvq38/07/2019 - Rocael Linares MDZ00.00 Encounter for general adult medical examination without abnormal findingsFollow up:[id number] Gastro-esophageal reflux disease with qgskyoybgbsS69.00 Pure hypercholesterolemia, btuidnsfkexA59.9 Hypothyroidism, cyowrmhmyapD95.0 Benign prostatic hyperplasia without lower urinary tract ppipqyboU51.511 Pain in right shoulder
[2018-03-05 16:32] VITALS: BP 130/88
--- NOTE | 2018-03-05 16:47 | UC ---
Truncal Trauma HPI - HPI Summary HPI Summary: 63-year-old male comes in with a chief complaint of pain in the right lower ribs after falling today. He slipped on the ice and struck his right lateral posterior ribs. His pain right away. Denies any abdominal pain or shortness of breath or any other injury. Pain is worse with palpation or taking a deep breath. He has urinated since and has not seen any blood in his urine. - History Of Current Complaint Chief Complaint: UCGeneralIllness Stated Complaint: RIB INJURY PT FELL Time Seen by Provider: 03/05/18 16:36 Pain Intensity: 7 - Allergies/Home Medications Allergies/Adverse Reactions: Allergies Allergy/AdvReac Type Severity Reaction Status Date / Time No Known Allergies Allergy Verified 03/05/18 16:28 Home Medications: Home Medications Ibuprofen 600 mg PO ONCE 03/05/18 [History Confirmed 03/05/18] Levothyroxine Sodium 25 mcg PO DAILY 03/05/18 [History Confirmed 03/05/18] PMH/Surg Hx/FS Hx/Imm Hx Previously Healthy: Yes Endocrine History: Hypothyroidism - Surgical History Surgical History: Yes Surgery Procedure, Year, and Place: RIGHT KNEE - Family History Known Family History: Positive: Non-Contributory - Social History Alcohol Use: Rare Substance Use Type: None Smoking Status (MU): Never Smoked Tobacco Review of Systems All Other Systems Reviewed And Are Negative: Yes Constitutional: Positive: Negative Skin: Positive: Negative Eyes: Positive: Negative ENT: Positive: Negative Respiratory: Positive: Negative Cardiovascular: Positive: Chest Pain Gastrointestinal: Positive: Negative Genitourinary: Positive: Negative. Negative: Hematuria Motor: Positive: Negative Neurovascular: Positive: Negative Musculoskeletal: Positive: Other: - SEE HPI Neurological: Positive: Negative Psychological: Positive: Negative Is Patient Immunocompromised?: No Physical Exam Triage Information Reviewed: Yes Appearance: Well-Appearing, Well-Nourished, Pain Distress - MILD, WITH DEEP BREATHS AND PALPATION OF RT LOWER RIBS Vital Signs: Initial Vital Signs Temp 98.2 F 03/05/18 16:27 Pulse 78 03/05/18 16:27 Resp 16 03/05/18 16:27 BP 130/88 03/05/18 16:27 Pulse Ox 98 03/05/18 16:27 Vital Signs Reviewed: Yes Eye Exam: Normal Eyes: Positive: Conjunctiva Clear Neck exam: Normal Neck: Positive: Supple Respiratory: Positive: Lungs clear, Normal breath sounds, No respiratory distress, Other: - TENDER TO PALPATION RT LOWER LATERAL AND POSTERIOR RIBS. NO ECCYMOSIS Cardiovascular: Positive: RRR Abdomen Description: Positive: Nontender, Soft Bowel Sounds: Positive: Present Musculoskeletal Exam: Normal Musculoskeletal: Positive: Strength Intact, ROM Intact Neurological Exam: Normal Neurological: Positive: Alert, Muscle Tone Normal Psychological Exam: Normal Psychological: Positive: Age Appropriate Behavior Skin Exam: Normal Truncal Trauma Course/Dx - Course Course Of Treatment: Order Information: RIBS RT UNI W/PA CH MIN 3 VWS. Accession Number: [id number]. CPT: 96431. HISTORY: RT LOWER RIB PAIN S/P FALL. COMPARISONS: None. VIEWS: 6 , Frontal view of the chest with frontal and oblique views of the right. hemithorax. FINDINGS: There are nondisplaced fractures of the right ninth and 10th ribs. There is no. appreciable pneumothorax. IMPRESSION: NONDISPLACED FRACTURES OF THE RIGHT NINTH AND 10TH RIBS. NO APPRECIABLE PNEUMOTHORAX. . <Electronically signed by Trevor Mcgraw MD in OV> 03/05 1711. I discussed the x-ray results with the patient and his . There is no sign of the pneumothorax on the chest x-ray. Patient's abdomen is soft and nontender he's been able eat and drink and urinate and there is no blood in the urine. At this time the plan is to take anti-inflammatories and also [place] as needed. Patient was sent home with an incentive Strommen after being time by nursing how to use it. Patient will follow-up his primary care doctor reevaluate sooner if worse or any other questions or concerns. - Differential Dx/Diagnosis Provider Diagnosis: Right rib fracture Discharge - Sign-Out/Discharge Documenting (check all that apply): Patient Departure All imaging exams completed and their final reports reviewed: Yes - Discharge Plan Condition: Stable Disposition: HOME Prescriptions: HYDROcodone/ACETAMIN 5-325 MG* [[place] 5-325 TAB*] 1 tab PO Q4H PRN #20 tab MDD 6 PRN Reason: Pain Patient Education Materials: Rib Fracture (ED) Referrals: Vijay MATUTE,Rocael Lal [Primary Care Provider] - Additional Instructions: FOLLOW UP WITH YOUR DOCTOR. GET RECHECKED SOONER WITH ANY WORSENING OF YOUR CONDITION; PAIN, SHORTNESS OF BREATH, BLOOD IN YOUR URINE, YOU FEEL ILL OR QUESTIONS OR CONCERNS. - Billing Disposition and Condition Condition: STABLE Disposition: Home
== END 2018-03-05 18:11 | disposition home or self-care (01) ==
LOC: UCCORT 16:05
DX: S22.41XA Multiple fractures of ribs, right side, initial encounter for closed fracture (principal); E03.9 Hypothyroidism, unspecified; Z79.899 Other long term (current) drug therapy; W00.0XXA Fall on same level due to ice and snow, initial encounter; Y92.9 Unspecified place or not applicable
CPT/HCPCS: 81003; 99202; G0463

== ENCOUNTER 2018-08-26 17:23 | Emergency (ER) | payer BC, OTHER ==
[2018-08-26 17:56] VITALS: BP 128/81
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
== END 2018-08-26 18:34 | disposition home or self-care (01) ==
LOC: UCCORT 17:23
DX: L03.113 Cellulitis of right upper limb (principal)
CPT/HCPCS: 99212; G0463